=== PATIENT | female | born 1965 | race Caucasian/White ===

== ENCOUNTER 2016-10-30 19:40 | Emergency (ER) | payer OTHER ==
[2016-10-30 20:03] VITALS: BP 158/98; PULSE 91; RESP 16; TEMP 98.2; O2SAT 97
--- NOTE | 2016-10-30 20:39 | UCPHY ---
H & P Time Seen by Provider: 10/30/16 20:23 Patient Type: New HPI/ROS: This patient complains of gradual onset of left shoulder symptoms at the apex of the shoulder over the past 2 months steadily increasing intensity now moderate at baseline in severe with attempts to abduct above the shoulder. She also reports a catching feeling when she abduct her shoulder. The patient does not take pain medications for her symptoms. 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 She saw her primary care physician who suggested that she avoid raising her arm above nipple level or so and wall crawls gentle stretches. Given that this is work comp he referred her on to our clinic ROS: No numbness or tingling in the affected arm. She reports no acute injuries. No other associated symptoms no pallor to the arm or discoloration. 5 point ROS is otherwise negative. Smoking Status: Never smoked Physical Exam: Physical Exam Vital signs are normal. General: No acute distress HEENT: Atraumatic. Eyes: Pupils equal and react to light. Extraocular motions are intact. Lungs: No respiratory distress. Cardiac: Brisk capillary refill is intact throughout. Pulses are 2+ and symmetric in the affected extremity. Skin: No rash or pallor. Extremities: Atraumatic normal except for left shoulder Left shoulder: Patient has mild tenderness at the supraspinous tendon region of her left upper humerus/apex of the shoulder. There is no AC joint tenderness , clavicle tenderness or deformity no ecchymosis. No erythema. She is able to externally rotate her arm without difficulty but she cannot abduct to horizontal due to pain. No difficulty with partial flexion or extension. Neuro: Alert and oriented x3 with no sensorimotor deficits. Initial differential diagnosis: Rotator cuff injury, impingement syndrome, rule out bony abnormality Constitutional: Initial Vital Signs Temperature (C) 36.8 C 10/30/16 20:00 Heart Rate 91 10/30/16 20:00 Respiratory Rate 16 10/30/16 20:00 Blood Pressure 158/98 H 10/30/16 20:00 O2 Sat (%) 97 10/30/16 20:00 O2 Delivery Mode Room Air Allergies/Adverse Reactions: No Known Allergies Allergy (Unverified 10/30/16 20:00) Home Medications: Medication Instructions Recorded NK [No Known Home Meds] 10/30/16 MDM/Departure - MDM Diagnostics: Shoulder x-ray: DJD at the AC joint on the left with impingement anatomy noted by radiologist. I also reviewed this x-ray. ED Course/Re-evaluation: Patient is placed in a sling. I counseled regarding shoulder impingement and rotator cuff injury. She will follow up with work comp - Depart Disposition: Home, Routine, Self-Care Clinical Impression: Rotator cuff impingement syndrome of left shoulder Condition: Good Instructions: Rotator Cuff Injury (ED) Additional Instructions: Diagnosis: Left shoulder impingement syndrome/rotator cuff injury Plan: Wear sling or minus of note use or arm at work-you should not lift your arm above nipple level or so Wall crawls stretches in gentle shoulder stretches daily [id number] mg for 6 hours as needed for discomfort Follow up with work comp physician in 2-5 days Stand Alone Forms: Work Limited Duty Referrals: Ricco Robison MD [Primary Care Provider] - As per Instructions - PQRS PQRS Measurement: NA
== END 2016-10-30 20:58 | disposition home or self-care (01) ==
LOC: CED 19:40
DX: S46.012A Strain of muscle(s) and tendon(s) of the rotator cuff of left shoulder, initial encounter (principal); X50.0XXA Overexertion from strenuous movement or load, initial encounter; Y92.512 Supermarket, store or market as the place of occurrence of the external cause; Y99.0 Civilian activity done for income or pay
CPT/HCPCS: 73030-PO; G0463-PO

== ENCOUNTER 2016-11-28 19:13 | Emergency (ER) | payer OTHER | END 2016-11-28 19:24 | disposition left against medical advice (07) | LOC: CED 19:13 | DX: Z53.29 Procedure and treatment not carried out because of patient's decision for other reasons (principal) ==